=== PATIENT | male | born 1965 | race Caucasian/White ===

== ENCOUNTER 2018-05-26 04:56 | Emergency (ER) | payer OTHER ==
[~2018-05-26] VITALS: Ht 185.4 cm; Wt 122.5 kg
[~2018-05-26 04:56] MED LIST: HYDACE5 PO; LISI20 PO
[2018-05-26 07:29] LABS: Influenza A Positive (NEGATIVE); Influenza B Negative (NEGATIVE)
[2018-05-26] MEDS ORDERED: BENZ100A PO (08:06)
== END 2018-05-26 08:28 | disposition home or self-care (01) ==
LOC: ER 04:56
PROVIDERS: Emergency Medicine
DX: J10.1 Influenza due to other identified influenza virus with other respiratory manifestations (principal); I10 Essential (primary) hypertension; Z79.899 Other long term (current) drug therapy; Z87.891 Personal history of nicotine dependence
CPT/HCPCS: 71046; 87804; 99283-25

== ENCOUNTER 2018-10-23 08:21 | Day surgery (SDC) | payer OTHER ==
[~2018-10-23] VITALS: Ht 182.9 cm; Wt 125.0 kg
[~2018-10-23 08:21] MED LIST changes: +AMLO10 PO; +ASPI81CH PO; +BENZ100A PO; +PRAV20 PO
--- NOTE | 2018-10-23 17:09 | NUR ---
TR BAND REMOVED COMPLETELY. NO BLEEDING OR OOZING. IV DC'D WITH CATH INTACT. PT DC'D VIA AMB- REFUSES WC- WITH FAMILY. MOTHER ARIEL SENIOR DATA INTEGRATION DEVELOPER. PT AND FAMILY VERBALIZES UNDERSTANDING OF SITE CARE SITE AND DC INSTRUCTIONS. PULSE PRESENT. SPLINT PLACED. PT DENIES SLING.
== END 2018-10-23 17:00 | disposition home or self-care (01) ==
LOC: MHTC 08:21
DX: I20.9 Angina pectoris, unspecified (principal); I47.1 Supraventricular tachycardia; R94.39 Abnormal result of other cardiovascular function study; I10 Essential (primary) hypertension; E78.5 Hyperlipidemia, unspecified; R00.2 Palpitations; Z87.891 Personal history of nicotine dependence
CPT/HCPCS: 93454; 99152; 99153; C1769; C1894; J1644; J2250; J3010; J7030; Q9967

== ENCOUNTER 2023-03-29 21:51 | Emergency (ER) | payer MEDICARE, OTHER ==
[~2023-03-29] VITALS: Ht 185.4 cm; Wt 108.9 kg
[2023-03-29 22:23] LABS: BASOPHILS ABSOLUTE AUTO 0.07 K/mm3 (0.00-0.23); BASOPHILS PERCENT AUTO 1 % (0-2); EOSINOPHILS ABSOLUTE AUTO 0.15 K/mm3 (0.00-0.68); EOSINOPHILS PERCENT AUTO 1 % (0-6); Hematocrit 43.9 % (37.0-53.0); IMMATURE GRAN ABSOLUTE AUTO 0.03 K/mm3 (0.00-0.10); IMMATURE GRAN PERCENT AUTO 0 % (0-1); LYMPHOCYTES ABSOLUTE AUTO 2.58 K/mm3 (0.84-5.20); LYMPHOCYTES PERCENT AUTO 23 % (21-46); MONOCYTES ABSOLUTE AUTO 0.68 K/mm3 (0.16-1.47); MONOCYTES PERCENT AUTO 6 % (4-13); Mean Corpuscular HGB 29.8 pg (26.0-34.0); Mean Corpuscular HGB Conc 34.2 g/dL (31.5-36.5); Mean Corpuscular Volume 87 fL (80-100); Mean Platelet Volume 9.7 fL (9.1-12.4); NEUTROPHILS ABSOLUTE AUTO 7.54 K/mm3 (1.96-9.15); NEUTROPHILS PERCENT AUTO 68 % (41-73); Platelet Count 307 K/mm3 (150-400); RDW Coefficient Variation 13.4 % (11.7-14.2); RDW Standard Deviation 42.7 fL (35.1-46.3); Red Blood Cell Count 5.04 M/mm3 (4.30-5.90); White Blood Cell Count 11.05 K/mm3 (4.00-11.30)
[2023-03-29 22:45] LABS: Albumin, Blood 3.3 g/dL (3.4-5.0); Albumin/Globulin Ratio 0.8 (0.8-1.8); Bilirubin, Total 0.3 mg/dL (0.1-1.0); Bun/Creatinine Ratio 19.8 (12.0-20.0); Calcium, Blood 9.3 mg/dL (8.5-10.1); Creatinine, Blood 0.81 mg/dL (0.60-1.20); Globulin, Blood 4.3 g/dL (2.2-4.0); Potassium, Blood 3.7 mmol/L (3.5-5.5); Total Protein, Blood 7.6 g/dL (6.4-8.2)
[2023-03-29 23:45] VITALS: BP 161/93
[2023-03-29] MEDS ORDERED: LISI20 PO ×2 (23:48→23:49)
== END 2023-03-29 23:53 | disposition home or self-care (01) ==
LOC: ER 21:51
PROVIDERS: Physician Assistant
DX: R07.9 Chest pain, unspecified (principal); Z76.0 Encounter for issue of repeat prescription; M79.602 Pain in left arm; Z87.891 Personal history of nicotine dependence; I10 Essential (primary) hypertension; Z79.899 Other long term (current) drug therapy
CPT/HCPCS: 71046; 80053; 84484; 85025; 93005; 93010; 99284-25; A9270

== ENCOUNTER 2023-09-04 06:04 | Day surgery (SDC) | payer OTHER ==
[2023-09-04] VITALS (16 sets, daily range): BP systolic 89–119; BP diastolic 57–79
[~2023-09-04] VITALS: Ht 185.4 cm; Wt 108.7 kg
[2023-09-04] MEDS ORDERED: Lactated Ringer's 1,000 ML IV SCH ×2 (06:25→07:15)
[2023-09-04] MEDS ORDERED: Chlorhexidine Mouth Care 15 ML UDC MT SCH (06:25)
[2023-09-04] MEDS ORDERED: CeFAZolin Sodium 2,000 MG in NS 100 ML IV SCH ×2 (06:25→15:45)
[2023-09-04] MEDS ORDERED: Ropivacaine 0.5% HCl/Pf 123.125 MG,EPINEPHrine HCL 0.25 MG,Ketorolac Tromethamine 15 MG... INFIL SCH (06:25)
[2023-09-04] MEDS ORDERED: Vancomycin HCL 1,000 MG in NS 250 ML IV SCH ×3 (06:25→21:30)
[2023-09-04] MEDS ORDERED: Acetaminophen 500 MG Tab PO SCH ×2 (06:25→16:00)
[2023-09-04] MEDS ORDERED: OxyCODONE HCL 10 MG TABCR PO SCH (06:25)
[2023-09-04] MEDS ORDERED: Tranexamic Acid 100 ML IV SCH (06:27)
[2023-09-04] MEDS ORDERED: Lidocaine HCl 2% 20 ML MDV ONE (06:49)
[2023-09-04] MEDS ORDERED: propofoL 20 ML IV ONE ×4 (06:49→08:01)
[2023-09-04] MEDS ORDERED: FentaNYL Citrate 50 MCG/ML 2 ML Injection ONE ×2 (06:50→10:14)
[2023-09-04] MEDS ORDERED: Lidocaine HCl 1% 5 ML SYR INJ ONE (07:00)
[2023-09-04] MEDS ORDERED: FentaNYL Citrate 50 MCG/ML 2 ML Injection IV PRN ×2 (07:00)
[2023-09-04] MEDS ORDERED: Midazolam HCl 1MG / ML 2ML Vial IV ONE (07:00)
[2023-09-04] MEDS ORDERED: Prochlorperazine Edisylate 10 mg Vial IV PRN (07:05)
[2023-09-04] MEDS ORDERED: HYDROmorphone HCl/Pf 1MG SYR IV PRN ×2 (07:05→07:10)
[2023-09-04] MEDS ORDERED: Promethazine HCl 25 MG Tab PO PRN (07:05)
[2023-09-04] MEDS ORDERED: Bisacodyl 10 MG Supp PR PRN (07:10)
[2023-09-04] MEDS ORDERED: Bupivacaine 0.5% HCl 5 MG/ML 30MLVIAL ONE (07:10)
[2023-09-04] MEDS ORDERED: DiphenhydrAMINE HCL 25 MG Cap PO PRN (07:10)
[2023-09-04] MEDS ORDERED: Metoclopramide HCl 5MG / ML 2ML Vial IV PRN (07:15)
[2023-09-04] MEDS ORDERED: Magnesium Hydroxide Conc 10 ML UDC PO PRN (07:15)
[2023-09-04] MEDS ORDERED: OxyCODONE HCL 5 MG TAB PO PRN ×2 (07:15)
[2023-09-04] MEDS ORDERED: Ondansetron HCl 2 MG / ML 2ML Vial IV PRN (07:15)
[2023-09-04] MEDS ORDERED: Phenylephrine HCl 100 MCG/ML-NS 10MLSYR (1MG/10ML) ONE (07:59)
[2023-09-04] MEDS ORDERED: Rocuronium Bromide 10 MG/ML 5ML Injection IV ONE ×2 (08:02→09:11)
[2023-09-04] MEDS ORDERED: Lidocaine HCl 2% Jelly 120MG/6ML SYR (20MG PER ML) ONE (08:11)
[2023-09-04] MEDS ORDERED: ePHEDrine Sulfate 50 MG/ML 1ML Injection ONE (08:11)
[2023-09-04] MEDS ORDERED: Dexamethasone Sod Phos 10 MG/ML 1ML VIAL ONE (08:24)
[2023-09-04] MEDS ORDERED: Ondansetron HCl 2 MG / ML 2ML Vial ONE (08:24)
[2023-09-04] MEDS ORDERED: Phenylephrine HCl 10mg/ml 1 ml Vial ONE (08:30)
[2023-09-04] MEDS ORDERED: Sugammadex Sodium 200 MG/2ML SDV (100 MG/ML) ONE (09:37)
[2023-09-04] MEDS ORDERED: Flumazenil 0.1 MG / ML 5ML Vial ONE (10:19)
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
[2023-09-04] MEDS ORDERED: NS 250 ML IV PRN (12:25)
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
--- NOTE | 2023-09-04 17:11 | NUR ---
SHIFT SUMMARY: POD 2 RIGHT SARAH HIP PATIENT IS VERY [place] BUT IS A&OX4. HIS RIGHT HIP HAS AN AQUACEL DRESSING THAT CONTINUES TO BE C/D/I. HE DENIES NUMBNESS OR TINGLING THROUGHOUT ALL EXTREMITIES. CAN MOVE ALL FINGERS AND TOES WHEN ASKED. PATIENT WORKED WITH PHYSICAL THERAPY AND OCCUPATIONAL THERAPY TODAY. PAIN IS MANAGED WITH PO OXY AND TYLENOL AT THIS TIME. HE IS TOLERATING PO INTAKE AND IS VOIDING. PATIENT IS CURRENTLY IN THE RECLINER CHAIR WITH CALL LIGHT IN REACH. PATIENT CONTINUES TO BE ON HEPARIN GTT THIS SHIFT WITH NO CHANGES IN RATE AT THIS TIME.
--- NOTE | 2023-09-04 17:16 | NUR ---
SHIFT SUMMARY: POD 0 RIGHT TOTAL HIP -POSTERIOR PATIENT IS A&OX4. VS ARE WNL AND IS ON RA. PAIN IS MANAGED WITH PO OXY AND PO TYLENOL AT THIS TIME. HIS RIGHT HIP HAS X3 GAUZE WITH FOAM TAPE DRESSINGS THAT ARE C/D/I. HE DENIES NUMBNESS OR TINGLING THROUGHOUT ALL EXTREMITIES. HE DID WORK WITH PHYSICAL THERAPY TODAY BUT NOT OCCUPATIONAL THERAPY YET. HE IS A SBA WITH FWW AND GAIT BELT. PATIENT IS TOLERATING PO INTAKE AND IS VOIDING. PATIENT IS IN THE RECLINER CHAIR WITH CALL LIGHT IN REACH. PATIENT CALLS APPROPRIATELY.
[2023-09-04] MEDS ORDERED: Ketorolac Tromethamine 15mg Vial IV SCH (18:00)
[2023-09-04] MEDS ORDERED: Docusate Sodium 100 MG Cap PO SCH (21:00)
[2023-09-04] MEDS ORDERED: Lisinopril 20 MG Tab PO SCH (21:00)
[2023-09-05 00:55] VITALS: BP 87/66
[2023-09-05 01:22] VITALS: BP 107/65
[2023-09-05 05:31] VITALS: BP 106/69
[2023-09-05 05:34] LABS: BASOPHILS ABSOLUTE AUTO 0.03 K/mm3 (0.00-0.23); BASOPHILS PERCENT AUTO 0 % (0-2); EOSINOPHILS ABSOLUTE AUTO 0.03 K/mm3 (0.00-0.68); EOSINOPHILS PERCENT AUTO 0 % (0-6); Hematocrit 34.6 % (37.0-53.0); Hemoglobin 11.5 g/dL (13.5-17.5); IMMATURE GRAN ABSOLUTE AUTO 0.07 K/mm3 (0.00-0.10); IMMATURE GRAN PERCENT AUTO 1 % (0-1); LYMPHOCYTES ABSOLUTE AUTO 1.34 K/mm3 (0.84-5.20); LYMPHOCYTES PERCENT AUTO 11 % (21-46); MONOCYTES ABSOLUTE AUTO 0.88 K/mm3 (0.16-1.47); MONOCYTES PERCENT AUTO 7 % (4-13); Mean Corpuscular HGB 29.9 pg (26.0-34.0); Mean Corpuscular HGB Conc 33.2 g/dL (31.5-36.5); Mean Corpuscular Volume 90 fL (80-100); Mean Platelet Volume 10.1 fL (9.1-12.4); NEUTROPHILS ABSOLUTE AUTO 9.95 K/mm3 (1.96-9.15); NEUTROPHILS PERCENT AUTO 81 % (41-73); Platelet Count 255 K/mm3 (150-400); RDW Coefficient Variation 13.4 % (11.7-14.2); Red Blood Cell Count 3.84 M/mm3 (4.30-5.90)
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
[2023-09-05 06:06] LABS: Bun/Creatinine Ratio 16.8 (12.0-20.0); Calcium, Blood 8.4 mg/dL (8.5-10.1); Creatinine, Blood 0.83 mg/dL (0.60-1.20); Magnesium, Blood 2.4 mg/dL (1.6-2.4); Potassium, Blood 4.2 mmol/L (3.5-5.5)
[2023-09-05 07:13] VITALS: BP 101/64
[2023-09-05] MEDS ORDERED: SULTRIDS PO (08:16)
[2023-09-05] MEDS ORDERED: ASPI81CH PO (08:16)
[2023-09-05] MEDS ORDERED: OXAYDO5 M1 PO (08:18)
[2023-09-05] MEDS ORDERED: PROM25 PO (08:18)
[2023-09-05] MEDS ORDERED: Trimethoprim/Sulfamethoxazole DS Tab PO SCH (09:00)
[2023-09-05] MEDS ORDERED: Aspirin 81 MG Chew PO SCH (09:00)
--- NOTE | 2023-09-05 11:57 | NUR ---
DISCHARGE SUMMARY POD1 R POSTERIOR JANINA, A/OX4, VSS, TOLERATING PO, AQUACELL DRESSING PLACE THIS AM BY ORTHO C/D/I, ABLE TO AMBULATE WITH SBA FWW/GB, VOIDING INDEPENDENTLY. DISCUSSED DC INSTRUCTIONS INCLUDING HOME CARE, MEDICATIONS, AND FOLLOW UP APPOINTMENTS. IV ACCESS REMOVED WHILE DISCUSSING DC INSTRUCTIONS, ALL QUESTIONS ANSWERED TO THEIR SATISFACTION. PT ESCORTED OUT VIA WC TO PRIVATE AUTO TO GO HOME.
== END 2023-09-05 11:06 | disposition home or self-care (01) ==
LOC: ORSCMMR 06:04 → ORD 07:30 → ORSCMMR 07:30 → SURS 11:09 → ORSCMMR 09-05 11:06
PROVIDERS: Orthopaedic Surgery
PROC: 0SR90JA Replacement of Right Hip Joint with Synthetic Substitute, Uncemented, Open Approach (ICD-10-PCS; principal; 2023-09-04 07:30)
DX: M16.11 Unilateral primary osteoarthritis, right hip (principal); I10 Essential (primary) hypertension; E78.5 Hyperlipidemia, unspecified; Z79.899 Other long term (current) drug therapy
CPT/HCPCS: 36415; 72170; 80048; 83735; 85025; 97110; 97116; 97162; 97165; 97530; 97535; A9270; C1713; C1776; J0171; J0690; J0735; J1100; J1885; J2250; J2371; J2405; J2704; J2795; J3010; J3370; J7050; J7120

== ENCOUNTER 2024-11-14 10:58 | Observation (INO) | payer MEDICARE ==
[~2024-11-14] VITALS: Ht 185.4 cm; Wt 110.8 kg
[~2024-11-14 10:58] MED LIST changes: +OXAYDO5 M1 PO; +PROM25 PO; +Prinivil10 MG PO; +SULTRIDS PO
[2024-11-14 11:26] LABS: BASOPHILS ABSOLUTE AUTO 0.04 K/mm3 (0.00-0.23); BASOPHILS PERCENT AUTO 0 % (0-2); EOSINOPHILS ABSOLUTE AUTO 0.00 K/mm3 (0.00-0.68); EOSINOPHILS PERCENT AUTO 0 % (0-6); Hematocrit 47.0 % (37.0-53.0); Hemoglobin 15.8 g/dL (13.5-17.5); IMMATURE GRAN ABSOLUTE AUTO 0.11 K/mm3 (0.00-0.10); IMMATURE GRAN PERCENT AUTO 1 % (0-1); LYMPHOCYTES ABSOLUTE AUTO 1.24 K/mm3 (0.84-5.20); LYMPHOCYTES PERCENT AUTO 7 % (21-46); MONOCYTES ABSOLUTE AUTO 0.77 K/mm3 (0.16-1.47); MONOCYTES PERCENT AUTO 4 % (4-13); Mean Corpuscular HGB Conc 33.6 g/dL (31.5-36.5); Mean Corpuscular Volume 90 fL (80-100); NEUTROPHILS ABSOLUTE AUTO 15.45 K/mm3 (1.96-9.15); NEUTROPHILS PERCENT AUTO 88 % (41-73); NRBC ABSOLUTE 0.00 K/mm3 (0.00-0.02); NRBC Auto 0.0 /100 WBC (0.0-0.2); Platelet Count 307 K/mm3 (150-400); RDW Coefficient Variation 14.6 % (11.7-14.2); RDW Standard Deviation 48.8 fL (35.1-46.3)
[2024-11-14 11:48] LABS: Alanine Aminotransfer (ALT/SGP 22.0 U/L (12-78); Albumin, Blood 3.7 g/dL (3.4-5.0); Albumin/Globulin Ratio 0.9 (0.8-1.8); Anion Gap 24.0 mmol/L (3-11); Aspartate Aminotrans (AST/SGOT 27.0 U/L (12-37); Bilirubin, Total 0.4 mg/dL (0.1-1.0); Blood Urea Nitrogen 30.0 mg/dL (8-24); CO2, Blood 14.0 mmol/L (21-32); Calcium, Blood 8.8 mg/dL (8.5-10.1); Chloride, Blood 102.0 mmol/L (98-108); Creatinine, Blood 1.43 mg/dL (0.60-1.20); Globulin, Blood 4.2 g/dL (2.2-4.0); Glucose, Blood 36.0 mg/dL (70-99); Potassium, Blood 4.4 mmol/L (3.5-5.5); Sodium, Blood 136.0 mmol/L (136-145); Total Protein, Blood 7.9 g/dL (6.4-8.2)
[2024-11-14 12:11] LABS: Influenza A, PCR NEGATIVE (NEGATIVE); Influenza B, PCR NEGATIVE (NEGATIVE); Resp Syncytial Virus, PCR NEGATIVE (NEGATIVE); SARS-Cov-2 (COVID-19) PCR, MMC NEGATIVE (NEGATIVE)
[2024-11-14] MEDS ORDERED: Lidocaine 2% Viscous Soln 15 ML UDC PO ONE (13:00)
[2024-11-14] MEDS ORDERED: Ondansetron HCl 2 MG / ML 2ML Vial IV ONE (13:00)
[2024-11-14] MEDS ORDERED: Metoprolol Tartrate 1 MG/ML 5 ML VIAL IV ONE (14:15)
[2024-11-14 14:34] LABS: Anti-Xa UFH, PHA Monitoring <0.10 IU/mL; Prothrombin Time Results 10.4 Sec (9.7-11.5)
[2024-11-14] MEDS ORDERED: Heparin Sodium 5000 Units/ML 1ML MDV IV ONE (14:40)
[2024-11-14] MEDS ORDERED: Heparin Sodium,Porcine/0.5 NS 500 ML IV SCH (14:40)
[2024-11-14 20:40] VITALS: BP 106/71
--- NOTE | 2024-11-14 20:42 | NUR ---
HEPARIN DRIP AT 27.6ML/HR VERIFIED WITH MADHURI ACOSTA
[2024-11-14] MEDS ORDERED: Clarify Drug Order XX ONE (21:35)
[2024-11-15 00:09] VITALS: BP 103/64
[2024-11-15 03:18] LABS: BASOPHILS ABSOLUTE AUTO 0.04 K/mm3 (0.00-0.23); BASOPHILS PERCENT AUTO 0 % (0-2); EOSINOPHILS ABSOLUTE AUTO 0.04 K/mm3 (0.00-0.68); EOSINOPHILS PERCENT AUTO 0 % (0-6); Hematocrit 39.0 % (37.0-53.0); Hemoglobin 13.3 g/dL (13.5-17.5); IMMATURE GRAN ABSOLUTE AUTO 0.03 K/mm3 (0.00-0.10); IMMATURE GRAN PERCENT AUTO 0 % (0-1); LYMPHOCYTES ABSOLUTE AUTO 1.50 K/mm3 (0.84-5.20); LYMPHOCYTES PERCENT AUTO 16 % (21-46); MONOCYTES ABSOLUTE AUTO 0.91 K/mm3 (0.16-1.47); MONOCYTES PERCENT AUTO 10 % (4-13); Mean Corpuscular HGB Conc 34.1 g/dL (31.5-36.5); Mean Corpuscular Volume 89 fL (80-100); NEUTROPHILS ABSOLUTE AUTO 6.96 K/mm3 (1.96-9.15); NEUTROPHILS PERCENT AUTO 74 % (41-73); NRBC ABSOLUTE 0.00 K/mm3 (0.00-0.02); NRBC Auto 0.0 /100 WBC (0.0-0.2); Platelet Count 217 K/mm3 (150-400); RDW Coefficient Variation 14.8 % (11.7-14.2); RDW Standard Deviation 47.4 fL (35.1-46.3)
[2024-11-15 03:35] LABS: Alanine Aminotransfer (ALT/SGP 26.0 U/L (12-78); Albumin, Blood 2.9 g/dL (3.4-5.0); Albumin/Globulin Ratio 0.9 (0.8-1.8); Anion Gap 9.0 mmol/L (3-11); Aspartate Aminotrans (AST/SGOT 57.0 U/L (12-37); Bilirubin, Total 0.7 mg/dL (0.1-1.0); Blood Urea Nitrogen 29.0 mg/dL (8-24); CO2, Blood 25.0 mmol/L (21-32); Calcium, Blood 7.9 mg/dL (8.5-10.1); Chloride, Blood 104.0 mmol/L (98-108); Creatinine, Blood 1.11 mg/dL (0.60-1.20); Globulin, Blood 3.2 g/dL (2.2-4.0); Glucose, Blood 97.0 mg/dL (70-99); Potassium, Blood 4.2 mmol/L (3.5-5.5); Sodium, Blood 134.0 mmol/L (136-145); Total Protein, Blood 6.1 g/dL (6.4-8.2)
[2024-11-15] MEDS ORDERED: Dose Adjust by Pharmacy XX STA (03:57)
--- NOTE | 2024-11-15 04:15 | NUR ---
NO CHANGES IN HEPARIN RATE OVERNIGHT. TROPONINS CONTINUTE TO BE WNL. NO ACUTE CHANGES OVER NIGHT. VITALS STABLE. BED IN LOWEST POSITION AND LOCKED. PATIENT IS INDEPENDENT TO RESTROOM. PERSONAL BELONGINS AND CALL RUBIO WITHIN REACH.
[2024-11-15 04:16] VITALS: BP 119/71
[2024-11-15 07:27] VITALS: BP 128/76
[2024-11-15 11:28] VITALS: BP 116/81
[2024-11-15 15:28] VITALS: BP 115/78
--- NOTE | 2024-11-15 17:44 | NUR ---
NOTE PT ALERT. WATCHING TV. HEPARIN GTT INFUSING. PT HAS DENIED CHEST PAIN OR SOB. EATING WELL. NO RETURN OF HYPOGLYCEMIC SYMPTOMS. FAMILY IN ATTENDANCE. NEEDS ENCOURAGEMENT TO DRINK LIQUIDS. CARE ONGOING.
[2024-11-15 19:49] VITALS: BP 140/86
--- NOTE | 2024-11-15 20:08 | NUR ---
HEPARIN DRIP VERIFIED WITH DALONA 27.6ML/HR
[2024-11-16 00:47] VITALS: BP 123/86
[2024-11-16 03:02] LABS: BASOPHILS ABSOLUTE AUTO 0.06 K/mm3 (0.00-0.23); BASOPHILS PERCENT AUTO 1 % (0-2); EOSINOPHILS ABSOLUTE AUTO 0.08 K/mm3 (0.00-0.68); EOSINOPHILS PERCENT AUTO 1 % (0-6); Hematocrit 37.6 % (37.0-53.0); Hemoglobin 12.8 g/dL (13.5-17.5); IMMATURE GRAN ABSOLUTE AUTO 0.02 K/mm3 (0.00-0.10); IMMATURE GRAN PERCENT AUTO 0 % (0-1); LYMPHOCYTES ABSOLUTE AUTO 2.21 K/mm3 (0.84-5.20); LYMPHOCYTES PERCENT AUTO 37 % (21-46); MONOCYTES ABSOLUTE AUTO 0.60 K/mm3 (0.16-1.47); MONOCYTES PERCENT AUTO 10 % (4-13); Mean Corpuscular HGB Conc 34.0 g/dL (31.5-36.5); Mean Corpuscular Volume 89 fL (80-100); NEUTROPHILS ABSOLUTE AUTO 3.06 K/mm3 (1.96-9.15); NEUTROPHILS PERCENT AUTO 51 % (41-73); NRBC ABSOLUTE 0.00 K/mm3 (0.00-0.02); NRBC Auto 0.0 /100 WBC (0.0-0.2); Platelet Count 177 K/mm3 (150-400); RDW Coefficient Variation 14.8 % (11.7-14.2); RDW Standard Deviation 48.6 fL (35.1-46.3)
[2024-11-16 03:21] LABS: Alanine Aminotransfer (ALT/SGP 24.0 U/L (12-78); Albumin, Blood 2.8 g/dL (3.4-5.0); Albumin/Globulin Ratio 0.9 (0.8-1.8); Anion Gap 8.0 mmol/L (3-11); Aspartate Aminotrans (AST/SGOT 37.0 U/L (12-37); Bilirubin, Total 0.4 mg/dL (0.1-1.0); Blood Urea Nitrogen 16.0 mg/dL (8-24); CO2, Blood 25.0 mmol/L (21-32); Calcium, Blood 8.1 mg/dL (8.5-10.1); Chloride, Blood 107.0 mmol/L (98-108); Creatinine, Blood 0.86 mg/dL (0.60-1.20); Globulin, Blood 3.2 g/dL (2.2-4.0); Glucose, Blood 99.0 mg/dL (70-99); Potassium, Blood 4.1 mmol/L (3.5-5.5); Sodium, Blood 136.0 mmol/L (136-145); Total Protein, Blood 6.0 g/dL (6.4-8.2)
--- NOTE | 2024-11-16 03:21 | NUR ---
CONTACTED DR ROWLEY TO ALERT HIM OF HBG DROP OVER THE LAST ~48 HOURS. NO ORDERS GIVEN AT THIS TIME.
[2024-11-16] MEDS ORDERED: Dose Adjust by Pharmacy XX STA (03:51)
[2024-11-16 04:35] VITALS: BP 118/89
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
[2024-11-16 07:47] VITALS: BP 131/90
--- NOTE | 2024-11-16 08:30 | NUR ---
ASSUMPTION OF CARE: THIS RN ASSUMED CARE OF PATIENT, OVERSEEING CARE c ORIENTING RN, JUNE. AWAKE DURING SHIFT CHANGE REPORT, AMBULATING BACK FROM BATHROOM. BREATHING EVEN AND UNLABORED c ROOM AIR. HEPARIN GTTs @ 27.6mL/hr. BED IN LOWEST POSITION. CALL LIGHT WITHIN REACH. ACUTE NEEDS MET.
[2024-11-16 15:16] VITALS: BP 129/87
[2024-11-16] MEDS ORDERED: ATOR10 PO (15:25)
[2024-11-16] MEDS ORDERED: NITR.4SL SL (15:25)
[2024-11-16] MEDS ORDERED: METO25 PO (15:30)
--- NOTE | 2024-11-16 18:19 | NUR ---
DISCHARGE SUMMARY: A&Ox4. PLEASANT AND COOPERATIVE WITH CARE. CALLS APPROPRIATELY AND IS ABLE TO ADVOCATE NEEDS EFFECTIVELY. AMBULATES INDEPENDENTLY. CONTINENT OF BOWEL AND BLADDER; LBM 11/15/24. MEDS WHOLE c FLUIDS. TELE SINUS @ 59bpm. NO C/O PAIN OR DISCOMFORT. PATIENT PROVIDED WITH COPY OF DISCHARGE PLAN AND MEDICATION LIST. MED REC FAXED TO [facility]. INSTRUCTED TO FOLLOW-UP WITH DR LAWRENCE WITHIN THREE DAYS; PT WILL CALL TOMORROW TO SCHEDULE. ALL QUESTIONS ANSWERED TO DISCHARGING NURSE'S ABILITY AND PATIENT VOICED UNDERSTANDING OF DISCHARGE PLAN. IV REMOVED AND PRESSURE DRESSING PLACED BY DELMA THORNE. LEFT FLOOR WITH ALL BELONGINGS AND DISCHARGE PACKET, ESCORTED BY THIS RN TO ELEVATOR. TRANSPORTATION PROVIDED BY MOM AND SISTER VIA POV.
[2024-11-17 14:30] LABS: SERUM, C-PEPTIDE 3.8 ng/mL (0.5-3.3)
[2024-11-19 10:32] LABS: INSULIN FREE 7 uIU/mL (3-25); TOTAL INSULIN 10 uIU/mL (3-25)
[2024-11-22 01:10] LABS: PROINSULIN, INTACT 6.3 pmol/L (<=7.2)
== END 2024-11-16 17:42 | disposition home or self-care (01) ==
LOC: ER 10:58 → ERHOLD 10:59 → MEDS 10:59
PROVIDERS: Emergency Medicine; Student in an Organized Health Care Education/Training Program; ADMIT Internal Medicine
DX: I24.9 Acute ischemic heart disease, unspecified (principal); I10 Essential (primary) hypertension; E78.5 Hyperlipidemia, unspecified; D72.829 Elevated white blood cell count, unspecified; E16.2 Hypoglycemia, unspecified; K21.9 Gastro-esophageal reflux disease without esophagitis; Z87.891 Personal history of nicotine dependence; Z79.82 Long term (current) use of aspirin; Z79.899 Other long term (current) drug therapy; Z90.49 Acquired absence of other specified parts of digestive tract
CPT/HCPCS: 36415; 36416; 71045; 71260; 78452; 80053; 82947; 83036; 83525; 83527; 83605; 83690; 84206; 84443; 84484; 84681; 85025; 85379; 85520; 85610; 85651; 85730; 86140; 87637; 93005; 93010; 93017; 96361; 96366; 96374-59; 96375-59; 99285-25; A9270; A9500; G0378; J0706; J1644; J2405; J2785; J7120; Q9967